=== PATIENT | female | born 1990 | race Caucasian/White ===

== ENCOUNTER → 2016-05-08 | Outpatient (CLI) | payer BC ==
[~2016-05-08] MED LIST: IBUPROFEN600 MG PO; NORCO 5-325 TA1 EACH PO; [UNRECOGNIZED DRUG - REMARK]
== END ==
LOC: OPSV 07:32
DX: R50.9 Fever, unspecified (principal); J02.9 Acute pharyngitis, unspecified
CPT/HCPCS: 87081; 87880

== ENCOUNTER 2016-07-16 23:50 | Emergency (ER) | payer BC ==
[2016-07-17 00:58] LABS: HEMOGLOBIN 14.4 gm/dl (12.3-15.3); RED BLOOD COUNT 4.57 M/UL (4.00-5.10)
[2016-07-17 01:16] LABS: BUN/CREATININE RATIO 17 (0-10)
== END 2016-07-17 04:20 | disposition home or self-care (01) ==
LOC: ER1 23:50
PROVIDERS: Emergency Medicine
DX: R10.13 Epigastric pain (principal); R11.0 Nausea
CPT/HCPCS: 36415; 76705; 80053; 81001; 82150; 83690; 84703; 85025; 87086; 96374; 96375; 99284; J2270; J2405; J7030

== ENCOUNTER 2016-11-25 16:46 | Emergency (ER) | payer BC | END 2016-11-25 18:10 | disposition home or self-care (01) | LOC: ER1 16:46 | DX: G43.909 Migraine, unspecified, not intractable, without status migrainosus (principal); F17.210 Nicotine dependence, cigarettes, uncomplicated | CPT/HCPCS: 36415; 84703; 96374; 96375; 99283; J1200; J1885; J2765; J7030 ==

== ENCOUNTER → 2020-03-10 | Outpatient (CLI) | payer BC ==
[~2020-03-10] MED LIST changes: +BACTRIM DS TAB1 EACH PO; +BENTYL 20MG TAB20 MG PO; +PHENERGAN 12.12.5 MG PR; +PHENERGAN 25 MG25 M1 PO; +PHENERGAN W/CO473 M1 GT; +PREDNISONE 50 M50 MG PO; +PRENATAL FORMU1 EAC2 PO; +PRENATAL VITAM1 EAC3 PO; +PYRIDIUM200 MG PO; +VISTARIL25 MG PO; +ZOFRAN ODT 4 MG4 MG PO; +ZOFRAN ODT 4 MG4 MG SL
== END ==
LOC: LAB 19:47
DX: Z32.01 Encounter for pregnancy test, result positive (principal)
CPT/HCPCS: 84702

== ENCOUNTER 2020-03-17 23:42 | Emergency (ER) | payer BC ==
[~2020-03-17 23:42] MED LIST changes: -BACTRIM DS TAB1 EACH PO; -PHENERGAN 25 MG25 M1 PO; -PYRIDIUM200 MG PO
[2020-03-18 00:45] LABS: HEMOGLOBIN 14.3 gm/dl (12.3-15.3); RED BLOOD COUNT 4.51 M/UL (4.00-5.10); WHITE BLOOD COUNT 11.2 K/UL (4.5-11.0)
[2020-03-18 01:05] LABS: BUN/CREATININE RATIO 18 (0-10)
== END 2020-03-18 02:55 | disposition home or self-care (01) ==
LOC: ER1 23:42
PROVIDERS: Family Medicine
DX: O99.891 Other specified diseases and conditions complicating pregnancy (principal); R10.2 Pelvic and perineal pain; Z98.84 Bariatric surgery status; Z3A.01 Less than 8 weeks gestation of pregnancy
CPT/HCPCS: 76830; 80053; 84702; 85025; 86850; 86900; 86901; 99284

== ENCOUNTER → 2020-03-22 | Outpatient (CLI) | payer BC ==
[~2020-03-22] MED LIST changes: +BACTRIM DS TAB1 EACH PO; +PHENERGAN 25 MG25 M1 PO; +PYRIDIUM200 MG PO
== END ==
LOC: LAB 17:58
DX: O20.0 Threatened abortion (principal)
CPT/HCPCS: 84702

== ENCOUNTER 2020-03-26 18:33 | Emergency (ER) | payer BC ==
[~2020-03-26 18:33] MED LIST changes: -BACTRIM DS TAB1 EACH PO; -PHENERGAN 25 MG25 M1 PO; -PYRIDIUM200 MG PO
[2020-03-26 19:09] LABS: HEMOGLOBIN 13.8 gm/dl (12.3-15.3); RED BLOOD COUNT 4.4 M/UL (4.00-5.10); WHITE BLOOD COUNT 9.2 K/UL (4.5-11.0)
== END 2020-03-26 20:50 | disposition home or self-care (01) ==
LOC: ER1 18:33
PROVIDERS: Emergency Medicine
DX: O03.4 Incomplete spontaneous abortion without complication (principal)
CPT/HCPCS: 76830; 84702; 85025; 99284

== ENCOUNTER 2020-04-06 08:09 | Emergency (ER) | payer BC ==
[2020-04-06 09:01] LABS: HEMOGLOBIN 14.5 gm/dl (12.3-15.3); RED BLOOD COUNT 4.61 M/UL (4.00-5.10); WHITE BLOOD COUNT 12.1 K/UL (4.5-11.0)
[2020-04-06 09:22] LABS: BUN/CREATININE RATIO 22 (0-10)
[2020-04-06] MEDS ORDERED: PYRIDIUM200 MG PO (11:33)
[2020-04-06] MEDS ORDERED: BACTRIM DS TAB1 EACH PO (11:33)
== END 2020-04-06 11:30 | disposition home or self-care (01) ==
LOC: ER1 08:09
PROVIDERS: Family Medicine
DX: N39.0 Urinary tract infection, site not specified (principal); Z87.442 Personal history of urinary calculi
CPT/HCPCS: 80053; 81001; 83690; 84703; 85025; 96374; 96375; 99284; J1885; J2405; J7030

== ENCOUNTER 2020-07-07 20:52 | Emergency (ER) | payer BC ==
[~2020-07-07 20:52] MED LIST changes: +BACTRIM DS TAB1 EACH PO; +PYRIDIUM200 MG PO
== END 2020-07-07 22:06 | disposition home or self-care (01) ==
LOC: ER1 20:52
DX: S06.9X9A Unspecified intracranial injury with loss of consciousness of unspecified duration, initial encounter (principal); M25.531 Pain in right wrist; F17.200 Nicotine dependence, unspecified, uncomplicated; Y04.2XXA Assault by strike against or bumped into by another person, initial encounter
CPT/HCPCS: 99283

== ENCOUNTER → 2020-08-05 | Outpatient (CLI) | payer BC ==
[~2020-08-05] MED LIST changes: +PHENERGAN 25 MG25 M1 PO
[2020-08-05 14:13] LABS: HEMOGLOBIN 13.1 gm/dl (12.3-15.3); RED BLOOD COUNT 4.17 M/UL (4.00-5.10); WHITE BLOOD COUNT 14.1 K/UL (4.5-11.0)
[2020-08-05 14:34] LABS: BUN/CREATININE RATIO 18 (0-10)
== END ==
LOC: LAB 13:45
PROVIDERS: Nurse Practitioner
DX: J20.9 Acute bronchitis, unspecified (principal); R06.02 Shortness of breath; R05 Cough
CPT/HCPCS: 36415; 71046; 80053; 85025; 85379

== ENCOUNTER 2020-08-28 16:48 | Emergency (ER) | payer BC ==
[~2020-08-28 16:48] MED LIST changes: -PHENERGAN 25 MG25 M1 PO
[2020-08-28 17:35] LABS: HEMOGLOBIN 14.8 gm/dl (12.3-15.3); RED BLOOD COUNT 4.67 M/UL (4.00-5.10); WHITE BLOOD COUNT 9.7 K/UL (4.5-11.0)
[2020-08-28 17:40] LABS: BUN/CREATININE RATIO 16 (0-10)
[2020-08-28] MEDS ORDERED: PHENERGAN 25 MG25 M1 PO (19:47)
== END 2020-08-28 20:15 | disposition home or self-care (01) ==
LOC: ER1 16:48
PROVIDERS: Emergency Medicine
DX: K52.9 Noninfective gastroenteritis and colitis, unspecified (principal); F17.200 Nicotine dependence, unspecified, uncomplicated
CPT/HCPCS: 80053; 81001; 82150; 83690; 84703; 85025; 96365; 96375; 99284; J2270; J2550; J7030; Q9967

== ENCOUNTER → 2021-03-21 | Outpatient (CLI) | payer SELFPAY ==
[~2021-03-21] MED LIST changes: +PHENERGAN 25 MG25 M1 PO
[2021-03-21 10:42] LABS: HEMOGLOBIN 14.6 gm/dl (12.3-15.3); RED BLOOD COUNT 4.73 M/UL (4.00-5.10); WHITE BLOOD COUNT 11.5 K/UL (4.5-11.0)
[2021-03-21 11:07] LABS: BUN/CREATININE RATIO 21 (0-10)
== END ==
LOC: LAB 10:12
DX: M79.3 Panniculitis, unspecified (principal); N64.81 Ptosis of breast; L30.4 Erythema intertrigo
CPT/HCPCS: 36415; 71046; 80053; 84702; 85027; 85610; 85730

== ENCOUNTER → 2021-05-12 | Outpatient (CLI) | payer BC | LOC: WCC 07:26 | DX: T81.31XA Disruption of external operation (surgical) wound, not elsewhere classified, initial encounter (principal); Z98.84 Bariatric surgery status; Z98.82 Breast implant status; Z87.891 Personal history of nicotine dependence ==

== ENCOUNTER → 2021-05-16 | Outpatient (CLI) | payer BC | LOC: WCC 07:49 | DX: S31.103A Unspecified open wound of abdominal wall, right lower quadrant without penetration into peritoneal cavity, initial encounter (principal) | CPT/HCPCS: G0463 ==

== ENCOUNTER → 2021-05-23 | Outpatient (CLI) | payer BC | LOC: WCC 07:25 | DX: Z53.8 Procedure and treatment not carried out for other reasons (principal) | CPT/HCPCS: G0463 ==

== ENCOUNTER → 2021-05-26 | Outpatient (CLI) | payer BC | LOC: WCC 07:27 | DX: T81.31XA Disruption of external operation (surgical) wound, not elsewhere classified, initial encounter (principal); Z98.84 Bariatric surgery status; Z98.82 Breast implant status; Z79.899 Other long term (current) drug therapy ==

== ENCOUNTER → 2021-05-30 | Outpatient (CLI) | payer BC | LOC: WCC 07:18 | DX: T81.30XD Disruption of wound, unspecified, subsequent encounter (principal) | CPT/HCPCS: G0463 ==

== ENCOUNTER → 2021-06-02 | Outpatient (CLI) | payer BC | LOC: WCC 08:30 | DX: T81.31XD Disruption of external operation (surgical) wound, not elsewhere classified, subsequent encounter (principal); Y83.8 Other surgical procedures as the cause of abnormal reaction of the patient, or of later complication, without mention of misadventure at the time of the procedure; T81.30XD Disruption of wound, unspecified, subsequent encounter; Z98.84 Bariatric surgery status; Z48.817 Encounter for surgical aftercare following surgery on the skin and subcutaneous tissue; Z98.82 Breast implant status ==

== ENCOUNTER → 2021-06-06 | Outpatient (CLI) | payer BC | LOC: WCC 07:57 | DX: T81.32XA Disruption of internal operation (surgical) wound, not elsewhere classified, initial encounter (principal); Z98.84 Bariatric surgery status; Z98.82 Breast implant status; Z79.899 Other long term (current) drug therapy | CPT/HCPCS: 97605 ==

== ENCOUNTER → 2021-06-13 | Outpatient (CLI) | payer BC | LOC: WCC 07:36 | DX: T81.31XA Disruption of external operation (surgical) wound, not elsewhere classified, initial encounter (principal); Z98.84 Bariatric surgery status; Z98.82 Breast implant status; Z48.817 Encounter for surgical aftercare following surgery on the skin and subcutaneous tissue | CPT/HCPCS: 97605 ==

== ENCOUNTER → 2021-06-20 | Outpatient (CLI) | payer BC | LOC: WCC 08:23 | DX: T81.31XA Disruption of external operation (surgical) wound, not elsewhere classified, initial encounter (principal); Z98.84 Bariatric surgery status; Z98.82 Breast implant status | CPT/HCPCS: 97605 ==

== ENCOUNTER → 2021-06-27 | Outpatient (CLI) | payer BC | LOC: WCC 07:24 | DX: T81.31XA Disruption of external operation (surgical) wound, not elsewhere classified, initial encounter (principal); Z98.84 Bariatric surgery status; Z98.82 Breast implant status | CPT/HCPCS: 97605 ==

== ENCOUNTER → 2021-07-04 | Outpatient (CLI) | payer BC | END | disposition home or self-care (01) | LOC: WCC 07:34 | DX: T81.31XA Disruption of external operation (surgical) wound, not elsewhere classified, initial encounter (principal); Z98.84 Bariatric surgery status; Z98.82 Breast implant status ==

== ENCOUNTER → 2021-07-11 | Outpatient (CLI) | payer BC | LOC: WCC 07:31 | DX: T81.31XA Disruption of external operation (surgical) wound, not elsewhere classified, initial encounter (principal); Z98.84 Bariatric surgery status; Z98.82 Breast implant status ==

== ENCOUNTER → 2021-07-18 | Outpatient (CLI) | payer BC | END | disposition home or self-care (01) | LOC: WCC 07:22 | DX: T81.31XA Disruption of external operation (surgical) wound, not elsewhere classified, initial encounter (principal); Z98.84 Bariatric surgery status; Z98.82 Breast implant status ==

== ENCOUNTER → 2021-07-25 | Outpatient (CLI) | payer BC | LOC: WCC 09:49 | DX: T81.31XD Disruption of external operation (surgical) wound, not elsewhere classified, subsequent encounter (principal); Z98.84 Bariatric surgery status; Z98.82 Breast implant status | CPT/HCPCS: G0463 ==